=== PATIENT | female | born 1965 | race Two or more races ===

== ENCOUNTER → 2024-01-19 | Day surgery (SDC) | payer OTHER, MEDICAID ==
[~2024-01-19] VITALS: Ht 167.6 cm; Wt 108.9 kg
[~2024-01-19] MED LIST: DIVA1TAB59 PO; HYDR50TA69 PO; LIDOCAINE 1% INJ PF 5ML AMP ONE; PROPOFOL 10 MG/ML 20 ML IV ONE; QUET50TA27 PO; QUET50TA5 PO; VENL1TAB97 PO
[2024-01-19 10:36] VITALS: TEMP 97.8; O2SAT 100
[2024-01-19 11:00] VITALS: BP 149/81; PULSE 71; RESP 15; O2SAT 96
== END | disposition home or self-care (01) ==
LOC: GI 07:45
PROVIDERS: ATTEND Internal Medicine Gastroenterology
DX: Z12.11 Encounter for screening for malignant neoplasm of colon (principal); D12.3 Benign neoplasm of transverse colon; D12.0 Benign neoplasm of cecum; K57.30 Diverticulosis of large intestine without perforation or abscess without bleeding; E66.01 Morbid (severe) obesity due to excess calories; F31.9 Bipolar disorder, unspecified; Z90.49 Acquired absence of other specified parts of digestive tract; Z90.710 Acquired absence of both cervix and uterus; Z96.653 Presence of artificial knee joint, bilateral; Z86.16 Personal history of COVID-19; Z98.891 History of uterine scar from previous surgery; Z79.899 Other long term (current) drug therapy; Z98.890 Other specified postprocedural states
CPT/HCPCS: 45380; 45385; 88305; J2704; J7030